=== PATIENT | female | born 1960 | race African-American/Black ===

== ENCOUNTER 2018-05-27 17:54 | Emergency (ER) | payer MEDICAID ==
[~2018-05-27] VITALS: Ht 166.4 cm; Wt 72.5 kg
[~2018-05-27 17:54] MED LIST: SERT100T PO
[2018-05-27] MEDS ORDERED: benazepril (18:48)
[2018-05-27] MEDS ORDERED: amlodipine (18:48)
[2018-05-27] MEDS ORDERED: seroquel (18:48)
[2018-05-27] MEDS ORDERED: xanax (18:48)
[2018-05-27] MEDS ORDERED: prilosec (18:48)
[2018-05-27 20:42] LABS: CHLORIDE 104 mEq/L (98-107)
[2018-05-27 20:59] LABS: BASOPHILS % 0.6 % (0.0-2.0); EOSINOPHILS % 0.2 % (0.0-5.0); HEMATOCRIT. 43.4 % (36.0-48.0); HEMOGLOBIN. 14.7 g/dL (12.0-16.0); LYMPHOCYTES % 17.9 % (20.0-50.0); MEAN CORPUSCULAR HEMOGLOBIN 31.1 pg (28.0-32.0); MEAN CORPUSCULAR VOLUME 91.8 fL (81.0-99.0); MEAN PLATELET VOLUME 7.5 fl (7.4-10.4); MONOCYTES % 3.1 % (2.0-8.0); NEUTROPHILS % 78.2 % (40.0-76.0); PLATELET 291 x1000/uL (130-400); RED BLOOD CELL COUNT 4.73 mill/uL (4.2-5.4); RED CELL DISTRIBUTION WIDTH 14.2 % (11.6-14.6)
[2018-05-27 21:18] VITALS: BP 106/73
== END 2018-05-27 21:20 | disposition home or self-care (01) ==
LOC: ER 17:54
DX: K62.5 Hemorrhage of anus and rectum (principal); K59.00 Constipation, unspecified; F41.9 Anxiety disorder, unspecified; I10 Essential (primary) hypertension; F17.200 Nicotine dependence, unspecified, uncomplicated; G47.00 Insomnia, unspecified; E78.00 Pure hypercholesterolemia, unspecified; J45.909 Unspecified asthma, uncomplicated; Z88.0 Allergy status to penicillin
CPT/HCPCS: 36415; 74018; 80048; 99284

== ENCOUNTER 2019-10-14 05:20 | Inpatient (IN) | payer MEDICAID, OTHER ==
[~2019-10-14] VITALS: Ht 166.4 cm; Wt 64.0 kg
[~2019-10-14 05:20] MED LIST changes: +amlodipine; +benazepril; +prilosec; +seroquel; +xanax
[2019-10-14] MEDS ORDERED: SODIUM CHLORIDE 0.9% 1000ML BAG (SEPSIS BOLUS) IV ONE (05:30)
[2019-10-14 06:10] LABS: BASOPHILS % 0.6 % (0.0-2.0); EOSINOPHILS % 1.1 % (0.0-5.0); HEMATOCRIT. 39.2 % (36.0-48.0); HEMOGLOBIN. 13.3 g/dL (12.0-16.0); MEAN CORPUSCULAR HEMOGLOBIN 31.5 pg (28.0-32.0); MEAN CORPUSCULAR VOLUME 92.8 fL (81.0-99.0); MEAN PLATELET VOLUME 7.8 fl (7.4-10.4); MONOCYTES % 4.6 % (2.0-8.0); NEUTROPHILS % 51.7 % (40.0-76.0); PLATELET 238 x1000/uL (130-400); RED BLOOD CELL COUNT 4.22 mill/uL (4.2-5.4)
[2019-10-14] MEDS ORDERED: PIPERACILLIN/TAZOBACTAM 3.375GM/50ML PREMIX IV ONE (06:15)
[2019-10-14 06:22] LABS: CHLORIDE 104 mEq/L (98-107)
[2019-10-14 06:26] LABS: ETHANOL BLOOD < 10 mg/dL
[2019-10-14] MEDS ORDERED: MORPHINE SULFATE 4 MG/ML CPJ (NOT FOR IM USE) IV ONE (06:30)
[2019-10-14] MEDS ORDERED: LEVOFLOXACIN 750MG PREMIX 150 ML IV ONE (06:30)
[2019-10-14] MEDS ORDERED: IOHEXOL-300 100 ML BOTTLE ONE (06:51)
[2019-10-14 07:07] LABS: CLARITY URINE CLEAR (CLEAR); COLOR URINE YELLOW (YELLOW); KETONES URINE NEGATIVE (NEGATIVE); LEUKOCYTE ESTERASE URINE 3+ (NEGATIVE); NITRITE URINE NEGATIVE (NEGATIVE); OCCULT BLOOD URINE TRACE (NEGATIVE); PH URINE 7.5 (4.5-8.0); PROTEIN URINE TRACE (NEGATIVE); UROBILINOGEN URINE 0.2 E.U./dL (0.2-1.0)
[2019-10-14 07:22] LABS: *AMPHETAMINES SCREEN URINE NEGATIVE (NEGATIVE); *BARBITURATES SCREEN URINE NEGATIVE (NEGATIVE); *BENZODIAZEPINES SCREEN URINE PRESUMTIVE POSITIVE (NEGATIVE); *COCAINE SCREEN URINE NEGATIVE (NEGATIVE); CANNABINOID URINE SCREEN NEGATIVE (NEGATIVE); METHADONE URINE SCREEN NEGATIVE (NEGATIVE); OPIATES URINE SCREEN NEGATIVE (NEGATIVE); PHENCYCLIDINE URINE SCREEN NEGATIVE (NEGATIVE)
[2019-10-14] MEDS: MORPHINE SULFATE 2 MG/ML CPJ (NOT FOR IM USE) IV PRN ×3 (09:40→20:15)
[2019-10-14 10:30] VITALS: BP 106/63
[2019-10-14 12:00] VITALS: BP 135/89
[2019-10-14] MEDS ORDERED: POTASSIUM CHLORIDE 20MEQ TABLET SR PO NR (12:30)
[2019-10-14] MEDS ORDERED: CHOL40002 MT (12:52)
[2019-10-14] MEDS ORDERED: OMEP10CA5 MT (12:52)
[2019-10-14] MEDS ORDERED: ACET650S25 GT (12:52)
[2019-10-14] MEDS ORDERED: ALPR0.5T MT (13:28)
[2019-10-14] MEDS ORDERED: BENA5TAB6 MT (13:28)
[2019-10-14] MEDS ORDERED: AMLO2.5T45 MT (13:28)
[2019-10-14] MEDS ORDERED: OMEP20TA15 MT (13:28)
[2019-10-14] MEDS ORDERED: QUET25TA MT (13:28)
[2019-10-14] MEDS: METRONIDAZOLE 500 MG PREMIX 100 ML IV SCH ×2 (14:07→21:54)
[2019-10-14] MEDS ORDERED: VARE1TAB22 MT (15:20)
[2019-10-14] MEDS: FAMOTIDINE 20MG TABLET PO SCH (15:49)
[2019-10-14 16:00] VITALS: BP 99/63
[2019-10-14] MEDS: DEXT 5%/0.45% NACL 1000ML 1,000 ML IV SCH (18:08)
[2019-10-14 20:00] VITALS: BP 109/71
[2019-10-15] VITALS: BP 123/73
[2019-10-15 04:00] VITALS: BP 123/80
[2019-10-15] MEDS: METRONIDAZOLE 500 MG PREMIX 100 ML IV SCH ×2 (06:19→14:00)
[2019-10-15 07:00] LABS: BASOPHILS % 0.2 % (0.0-2.0); EOSINOPHILS % 1.2 % (0.0-5.0); HEMATOCRIT. 37.8 % (36.0-48.0); HEMOGLOBIN. 12.7 g/dL (12.0-16.0); LYMPHOCYTES % 35.4 % (20.0-50.0); MEAN CORPUSCULAR VOLUME 92.2 fL (81.0-99.0); MEAN PLATELET VOLUME 7.8 fl (7.4-10.4); MONOCYTES % 5.3 % (2.0-8.0); NEUTROPHILS % 57.9 % (40.0-76.0); PLATELET 233 x1000/uL (130-400)
[2019-10-15 08:00] VITALS: BP 136/76
[2019-10-15 08:05] LABS: CHLORIDE 107 mEq/L (98-107)
[2019-10-15] MEDS ORDERED: LEVOFLOXACIN 500MG PREMIX 100 ML IV SCH (09:00)
[2019-10-15] MEDS: FAMOTIDINE 20MG TABLET PO SCH (09:31)
[2019-10-15] MEDS ORDERED: POTASSIUM CHLORIDE 20MEQ TABLET SR PO SCH (11:15)
[2019-10-15 12:00] VITALS: BP 111/74
[2019-10-15] MEDS ORDERED: METR500T MT (12:19)
[2019-10-15] MEDS ORDERED: LEVO500T2 MT (12:19)
[2019-10-15 14:11] VITALS: BP 111/74
[2019-10-15] MEDS: DEXT 5%/0.45% NACL 1000ML 1,000 ML IV SCH (14:15)
== END 2019-10-15 15:30 | disposition home or self-care (01) | DRG 720 ==
LOC: ER 05:20 → 5WST 07:45 → ENRESERV 09:59
PROVIDERS: ADMIT Internal Medicine; ATTEND Internal Medicine
DX: A41.9 Sepsis, unspecified organism (principal); E44.1 Mild protein-calorie malnutrition; E78.5 Hyperlipidemia, unspecified; E87.6 Hypokalemia; F17.210 Nicotine dependence, cigarettes, uncomplicated; F31.9 Bipolar disorder, unspecified; G40.909 Epilepsy, unspecified, not intractable, without status epilepticus; I10 Essential (primary) hypertension; J98.11 Atelectasis; K52.9 Noninfective gastroenteritis and colitis, unspecified; K56.41 Fecal impaction; N32.89 Other specified disorders of bladder; N39.0 Urinary tract infection, site not specified; R65.21 Severe sepsis with septic shock; Z88.0 Allergy status to penicillin; Z90.49 Acquired absence of other specified parts of digestive tract; Z68.23 Body mass index [BMI] 23.0-23.9, adult; Z71.6 Tobacco abuse counseling
CPT/HCPCS: 36415; 71045; 74018; 74177; 80048; 80053; 80305; 80320; 81003; 83605; 84145; 84484; 85025; 87493; 93005; 99285; J1956; J2270; J3490; J7030; Q9967; G0480